=== PATIENT | male | born 1955 | race Two or more races ===

== ENCOUNTER → 2017-03-20 | Emergency (ER) | payer OTHER ==
[~2017-03-20] VITALS: Ht 172.7 cm; Wt 74.4 kg
[~2017-03-20] MED LIST: CLARINEX5 MG/TAB PO; FLEXERIL PO; NASACORT AQ16.5 GM NS
== END | disposition home or self-care (01) ==
LOC: ER 20:21
DX: R42 Dizziness and giddiness (principal)

== ENCOUNTER 2017-04-03 08:05 | Outpatient (CLI) | payer OTHER | END 2017-04-03 08:16 | disposition home or self-care (01) | LOC: LAB 08:05 | DX: E78.2 Mixed hyperlipidemia (principal); E03.8 Other specified hypothyroidism; E11.9 Type 2 diabetes mellitus without complications; E55.9 Vitamin D deficiency, unspecified; N40.0 Benign prostatic hyperplasia without lower urinary tract symptoms; K92.1 Melena ==

== ENCOUNTER 2017-04-03 08:40 | Outpatient (CLI) | payer OTHER | END 2017-04-03 08:52 | disposition home or self-care (01) | LOC: RAD 08:40 | DX: I10 Essential (primary) hypertension (principal) ==

== ENCOUNTER 2017-04-03 09:53 | Outpatient (CLI) | payer OTHER | END 2017-04-03 09:57 | disposition home or self-care (01) | LOC: NUCLEAR 09:53 | DX: I10 Essential (primary) hypertension (principal); R55 Syncope and collapse ==

== ENCOUNTER 2024-02-04 11:43 | Outpatient (CLI) | payer OTHER | END 2024-02-04 11:46 | disposition home or self-care (01) | LOC: RAD 11:43 | PROVIDERS: ATTEND Orthopaedic Surgery | DX: S52.531A Colles' fracture of right radius, initial encounter for closed fracture (principal) ==